=== PATIENT | female | born 1965 | race American Indian/Alaskan Native ===

== ENCOUNTER 2017-08-25 10:48 | Emergency (ER) | payer BC, OTHER ==
[2017-08-25 10:57] VITALS: BP 134/82
[2017-08-25 11:43] LABS: Hemoglobin 14.4 gm/dl (10.1-14.3); Mean Corpuscular HGB Conc 34 % (30-34); Mean Corpuscular Hemoglobin 30 pg (28-32); Mean Corpuscular Volume 88 fl (79-97); Platelet Count 310 K/mm3 (140-440); Red Blood Count 4.89 M/mm3 (3.65-5.03); Red Cell Distribution Width 13.5 % (13.2-15.2)
[2017-08-25 11:53] LABS: INR 0.89 (0.87-1.13); Partial Thromboplastin Time 30.4 Sec. (24.2-36.6)
[2017-08-25 11:58] LABS: BUN/Creatinine Ratio 11; Blood Urea Nitrogen 10 mg/dL (7-17); Calcium 10.1 mg/dL (8.4-10.2); Hemolysis Index 13
[2017-08-25 12:23] LABS: Large Platelets Few; Platelet Estimate Cons; RBC Morphology Normal; Smudge Cells Few; Total Cells Counted 100
--- NOTE | 2017-08-25 12:50 | Cat Scan Report ---
FINAL REPORT PROCEDURE: CT HEAD/BRAIN WO CON TECHNIQUE: Computerized tomography of the head was performed without contrast material. HISTORY: HEREDIA/ blurred vision/dizziness COMPARISON: None FINDINGS: Brain volume is age appropriate. There is no CT evident acute infarction. There is no remote infarct, intra or extra-axial hemorrhage. There is no gross mass lesion or leptomeningeal abnormality given limitation of lack of IV contrast. The skull base and calvarium are intact. The partially visualized paranasal sinuses, mastoid air cells and middle ears are clear. IMPRESSION: Normal Examination
== END 2017-08-25 16:53 | disposition left against medical advice (07) ==
LOC: ED 10:48
DX: R51 Headache (principal); Z53.21 Procedure and treatment not carried out due to patient leaving prior to being seen by health care provider
CPT/HCPCS: 36415; 70450; 80048; 84484; 85007; 85025; 85610; 85670; 85730; 93005; 93010

== ENCOUNTER 2017-10-06 10:00 | Outpatient (CLI) | payer BC ==
--- NOTE | 2017-10-06 11:38 | Mammography Report ---
BILATERAL DIGITAL SCREENING MAMMOGRAM with CAD: 10/06/17 10:00:00 CLINICAL: Routine screening. COMPARISON:09/30/16 FINDINGS: The breasts are heterogeneously dense, which may obscure small masses. No mass, architectural distortion or suspicious calcifications. IMPRESSION: No mammographic evidence of malignancy. BI-RADS CATEGORY: 1 - - Negative RECOMMENDATION: Routine mammographic screening in one year. COMMENT: Patient follow-up letters are generated by our [employer] application.
== END 2017-10-06 10:01 | disposition home or self-care (01) ==
LOC: MAMMO 10:00
PROVIDERS: ATTEND Family Medicine
DX: Z12.31 Encounter for screening mammogram for malignant neoplasm of breast (principal)
CPT/HCPCS: 77067

== ENCOUNTER 2017-12-10 09:11 | Emergency (ER) | payer BC ==
[2017-12-10 10:25] LABS: Alanine Aminotransferase 50 units/L (7-56); Albumin 4.2 g/dL (3.9-5); BUN/Creatinine Ratio 12; Blood Urea Nitrogen 11 mg/dL (7-17); Calcium 9.5 mg/dL (8.4-10.2); Hemolysis Index 5; Lipase 32 units/L (13-60)
[2017-12-10 10:41] LABS: Basophils # (Auto) 0.1 K/mm3 (0.0-0.1); Eosinophils # (Auto) 0.4 K/mm3 (0.0-0.4); Eosinophils % (Auto) 7.8 % (0.0-4.3); Hematocrit 40.8 % (30.3-42.9); Hemoglobin 13.8 gm/dl (10.1-14.3); Lymphocytes # (Auto) 2.4 K/mm3 (1.2-5.4); Lymphocytes % (Auto) 43.1 % (13.4-35.0); Mean Corpuscular HGB Conc 34 % (30-34); Mean Corpuscular Hemoglobin 30 pg (28-32); Mean Corpuscular Volume 88 fl (79-97); Monocytes # (Auto) 0.5 K/mm3 (0.0-0.8); Monocytes % (Auto) 8.6 % (0.0-7.3); Platelet Count 288 K/mm3 (140-440); Red Blood Count 4.63 M/mm3 (3.65-5.03); Red Cell Distribution Width 13.7 % (13.2-15.2)
[2017-12-10 11:01] LABS: Bilirubin,Urine NEG (Negative); Blood,Urine NEG (Negative); Color,Urine Straw (Yellow); Mucus,Urine FEW /HPF; Protein,Urine <15 mg/dL mg/dL (Negative); Urobilinogen,Urine < 2.0 mg/dL (<2.0); WBC,Urine < 1.0 /HPF (0.0-6.0)
--- NOTE | 2017-12-10 19:48 | Emergency Department Report ---
ED Abdominal Pain HPI - General Chief Complaint: Abdominal Pain Stated Complaint: ABDOMINAL PAIN Time Seen by Provider: 12/10/17 19:42 Source: patient Mode of arrival: Ambulatory Limitations: No Limitations - History of Present Illness Initial Comments: pt is a 52 y/o aaf with hx of GERD and Pancreatitis follow by Dr. Kortney VEGAS and Charlie pcp states abdominal pain and bloating x 3 days out of antacids , there is no fever no chills no n/v no cp no sob no back pain, symptoms are exacerbated by spice food and heavy po intake symptoms are usually improved with antacids but out now, pain described as burning heartburn. MD Complaint: abdominal pain Onset/Timin -: days(s) Location: LUQ, epigastric Radiation: none Migration to: no migration Severity: mild Severity scale (0 -10): 2 Quality: burning Consistency: intermittent Improves With: rest, other (antacids ) Worsens With: eating Associated Symptoms: denies: vomiting, diarrhea, fever, constipation, dysuria, hematemesis, hematochezia, melena, hematuria, anorexia - Related Data LMP Date: 12/03/17 Home Medications Medication Instructions Recorded Confirmed Last Taken Nebivolol HCl [Bystolic] 10 mg PO DAILY 11/22/13 11/22/13 11/27/13 08:00 Aspirin [Baby Aspirin] 81 mg PO DAILY 11/25/13 11/25/13 11/25/13 09:00 Butalb/Acetamin/Caff 50-325-40 1 mg PO PRN PRN 11/25/13 11/25/13 Unknown [Fioricet] Iron/Dss/B12-If/Folic AC/Mv-Mn 1 tab PO DAILY 11/25/13 11/25/13 Unknown [Hemax Caplet] Loratadine [Claritin] 10 mg PO DAILY 11/25/13 11/25/13 Unknown Meclizine [Antivert] 25 mg PO TID 11/25/13 11/25/13 Unknown Nitroglycerin [Nitrostat] 1 tab PO PRN PRN 11/25/13 11/25/13 Unknown Omeprazole [PriLOSEC] 40 mg PO DAILY 11/25/13 11/25/13 Unknown Pregabalin [Lyrica] 75 mg PO BID 11/25/13 11/25/13 Unknown traMADol [Ultram 50 MG tab] 50 mg PO Q6H 11/25/13 11/25/13 Unknown Previous Rx's Medication Instructions Recorded Last Taken Type Omeprazole 20 mg PO BID #60 tablet. 12/10/17 Unknown Rx Sucralfate [Carafate] 1 gm PO ACHS #28 tablet 12/10/17 Unknown Rx Allergies Allergy/AdvReac Type Severity Reaction Status Date / Time SUTURES AdvReac Swelling Uncoded 11/22/13 14:31 ED Review of Systems ROS: Stated complaint: ABDOMINAL PAIN Other details as noted in HPI Constitutional: denies: chills, fever Eyes: denies: eye pain, eye discharge, vision change ENT: denies: ear pain, throat pain Respiratory: denies: cough, shortness of breath, wheezing Cardiovascular: denies: chest pain, palpitations Endocrine: no symptoms reported Gastrointestinal: abdominal pain. denies: nausea, vomiting, diarrhea, constipation, hematemesis, melena, hematochezia Genitourinary: denies: urgency, dysuria, discharge Musculoskeletal: denies: back pain, joint swelling, arthralgia Skin: denies: rash, lesions Neurological: denies: headache, weakness, paresthesias Psychiatric: denies: anxiety, depression Hematological/Lymphatic: denies: easy bleeding, easy bruising ED Past Medical Hx - Past Medical History Hx Hypertension: Yes (5 YEARS) Hx Deep Vein Thrombosis: Yes (LEFT DVT POST OP BUNIONECTOMY LEFT) Hx GERD: Yes - Surgical History Additional Surgical History: tubal ligation - Social History Smoking Status: Never Smoker - Medications Home Medications: Home Medications Medication Instructions Recorded Confirmed Last Taken Type Nebivolol HCl [Bystolic] 10 mg PO DAILY 11/22/13 11/22/13 11/27/13 08:00 History Aspirin [Baby Aspirin] 81 mg PO DAILY 11/25/13 11/25/13 11/25/13 09:00 History Butalb/Acetamin/Caff 50-325-40 1 mg PO PRN PRN 11/25/13 11/25/13 Unknown History [Fioricet] Iron/Dss/B12-If/Folic AC/Mv-Mn 1 tab PO DAILY 11/25/13 11/25/13 Unknown History [Hemax Caplet] Loratadine [Claritin] 10 mg PO DAILY 11/25/13 11/25/13 Unknown History Meclizine [Antivert] 25 mg PO TID 11/25/13 11/25/13 Unknown History Nitroglycerin [Nitrostat] 1 tab PO PRN PRN 11/25/13 11/25/13 Unknown History Omeprazole [PriLOSEC] 40 mg PO DAILY 11/25/13 11/25/13 Unknown History Pregabalin [Lyrica] 75 mg PO BID 11/25/13 11/25/13 Unknown History traMADol [Ultram 50 MG tab] 50 mg PO Q6H 11/25/13 11/25/13 Unknown History Omeprazole 20 mg PO BID #60 tablet. 12/10/17 Unknown Rx Sucralfate [Carafate] 1 gm PO ACHS #28 tablet 12/10/17 Unknown Rx ED Physical Exam - General Limitations: No Limitations General appearance: alert, in no apparent distress - Head Head exam: Present: atraumatic, normocephalic - Eye Eye exam: Present: normal appearance - ENT ENT exam: Present: mucous membranes moist - Neck Neck exam: Present: normal inspection - Respiratory Respiratory exam: Present: normal lung sounds bilaterally. Absent: respiratory distress, wheezes, rhonchi, chest wall tenderness - Cardiovascular Cardiovascular Exam: Present: regular rate, normal rhythm, normal heart sounds. Absent: systolic murmur, diastolic murmur, rubs, gallop - GI/Abdominal GI/Abdominal exam: Present: soft, normal bowel sounds. Absent: distended, tenderness, guarding, rebound, rigid, organomegaly, mass, bruit, pulsatile mass , hernia - Rectal Rectal exam: Present: deferred - Extremities Exam Extremities exam: Present: normal inspection - Back Exam Back exam: Present: normal inspection, full ROM. Absent: tenderness, CVA tenderness (R), CVA tenderness (L) - Neurological Exam Neurological exam: Present: alert, oriented X3, normal gait - Psychiatric Psychiatric exam: Present: normal affect, normal mood - Skin Skin exam: Present: warm, dry, intact, normal color. Absent: rash ED Course Vital Signs 12/10/17 12/10/17 12/10/17 09:53 14:22 18:31 Temperature 98.2 F 98.6 F Pulse Rate 91 H 95 H 78 Respiratory 16 20 18 Rate Blood Pressure 134/80 125/77 118/74 O2 Sat by Pulse 100 97 100 Oximetry 12/10/17 18:37 Temperature 98 F Pulse Rate Respiratory Rate Blood Pressure O2 Sat by Pulse Oximetry ED Medical Decision Making - Lab Data Result diagrams: 12/10/17 10:00 12/10/17 10:00 Laboratory Tests 12/10/17 12/10/17 12/10/17 10:00 10:00 10:08 WBC 5.5 RBC 4.63 Hgb 13.8 Hct 40.8 MCV 88 MCH 30 MCHC 34 RDW 13.7 Plt Count 288 Lymph % (Auto) 43.1 H [place] % (Auto) 8.6 H Eos % (Auto) 7.8 H Baso % (Auto) 1.0 Lymph # 2.4 [place] # 0.5 Eos # 0.4 Baso # 0.1 Seg Neutrophils % 39.5 L Seg Neutrophils # 2.2 Sodium 142 Potassium 3.8 Chloride 104.7 Carbon Dioxide 27 Anion Gap 14 BUN 11 Creatinine 0.9 Estimated GFR > 60 BUN/Creatinine Ratio 12 Glucose 119 H Calcium 9.5 Total Bilirubin 0.30 AST 33 ALT 50 Alkaline Phosphatase 96 Total Protein 7.2 Albumin 4.2 Albumin/Globulin Ratio 1.4 Lipase 32 Urine Color Straw Urine Turbidity Clear Urine pH 6.0 Ur Specific Noti 1.008 Urine Protein <15 mg/dl Urine Glucose (UA) Neg Urine Ketones Neg Urine Blood Neg Urine Nitrite Neg Urine Bilirubin Neg Urine Urobilinogen < 2.0 Ur Leukocyte Esterase Neg Urine WBC (Auto) < 1.0 Urine RBC (Auto) 1.0 U Epithel Cells (Auto) 3.0 Urine Mucus Few - Medical Decision Making this is GERD, pt is tolerating po intake without n/v appears well nontoxic well hydrated no fever no chills no n/v plan: omeprazole carafate follow up with Dr. Kortney VEGAS tomorrow. pt verbalized agreement and understanding discharge plan. Critical care attestation.: If time is entered above; I have spent that time in minutes in the direct care of this critically ill patient, excluding procedure time. ED Disposition Clinical Impression: GERD (gastroesophageal reflux disease) Qualifiers: Esophagitis presence: without esophagitis Qualified Code(s): K21.9 - Gastro- esophageal reflux disease without esophagitis Abdominal pain Qualifiers: Abdominal location: epigastric Qualified Code(s): R10.13 - Epigastric pain Disposition: DC- TO HOME OR SELFCARE Is pt being admited?: No Does the pt Need Aspirin: No Condition: Good Instructions: Abdominal Pain (ED), Gastroesophageal Reflux Disease (ED) Prescriptions: Omeprazole 20 mg PO BID #60 tablet. Sucralfate [Carafate] 1 gm PO ACHS #28 tablet Referrals: SHERITA GARCIA MD [Primary Care Provider] - 3-5 Days ALBA SHEN MD [Staff Physician] - 3-5 Days Forms: Work/School Release Form(ED) Time of Disposition: 19:54
[2017-12-10 20:05] VITALS: BP 104/69
== END 2017-12-10 20:03 | disposition home or self-care (01) ==
LOC: ED 09:11
DX: K21.9 Gastro-esophageal reflux disease without esophagitis (principal); R10.13 Epigastric pain; I10 Essential (primary) hypertension
CPT/HCPCS: 36415; 80053; 81001; 83690; 85025; 99283

== ENCOUNTER 2018-10-19 10:06 | Outpatient (CLI) | payer BC ==
--- NOTE | 2018-10-19 12:06 | Mammography Report ---
BILATERAL DIGITAL SCREENING MAMMOGRAM with CAD: 10/19/18 10:06:00 CLINICAL: Routine screening. COMPARISON:10/06/17 FINDINGS: The breasts are heterogeneously dense, which may obscure small masses. No mass, architectural distortion or suspicious calcifications. IMPRESSION: No mammographic evidence of malignancy. BI-RADS CATEGORY: 1 - - Negative RECOMMENDATION: Routine mammographic screening in one year. COMMENT: Patient follow-up letters are generated by our [employer] application.
== END 2018-10-19 10:07 | disposition home or self-care (01) ==
LOC: MAMMO 10:06
PROVIDERS: ATTEND Family Medicine
DX: Z12.31 Encounter for screening mammogram for malignant neoplasm of breast (principal)
CPT/HCPCS: 77067

== ENCOUNTER 2019-10-29 09:53 | Outpatient (CLI) | payer BC ==
--- NOTE | 2019-10-29 14:14 | Mammography Report ---
DIGITAL SCREENING MAMMOGRAM WITH CAD, 10/29/2019 INDICATION: Routine screening mammography. TECHNIQUE: Digital bilateral 2D mammography was obtained in the craniocaudal and mediolateral obliq ue projections. This examination was interpreted with the benefit of Computer-Aided Detection analysi s. COMPARISON: 10/19/2018 FINDINGS: Breast Density: The breasts are heterogeneously dense, which may obscure small masses. An irregular left inner focal asymmetry requires additional imaging. No architectural distortion or s uspicious calcifications of the left breast. There is no evidence of dominant mass, suspicious calcif ications or architectural distortion in the right breast. IMPRESSION: Left focal asymmetry requiring additional imaging. Recommend recall for left lateral medi al and spot magnification MLO and CC views and left breast ultrasound if needed. Follow up recommendation: Special View: Mag Category 0: Incomplete. Needs additional imaging evaluation and/or prior mammograms for comparison. A "normal" or negative report should not discourage follow up or biopsy of a clinically significant f inding. A written summary of these findings will be mailed to the patient. The patient will be entered into a mammography reporting system which will generate a reminder letter for the patient's next appointmen t at the appropriate interval. The [employer] recommends yearly mammograms starting at age 40 and continuing as l ami as a woman is in good health. Breast MRI is recommended for women with an approximate 20-25% or greater lifetime risk of breast cancer, including women with a strong family history of breast or ova johan cancer or who have been treated for Hodgkin's disease. Signer Name: Jayson Rhodes MD Signed: 10/29/2019 2:10 PM Workstation Name: [id number]
== END 2019-10-29 09:54 | disposition home or self-care (01) ==
LOC: MAMMO 09:53
PROVIDERS: ATTEND Family Medicine
DX: Z12.31 Encounter for screening mammogram for malignant neoplasm of breast (principal)
CPT/HCPCS: 77067

== ENCOUNTER 2019-11-29 12:26 | Outpatient (CLI) | payer BC ==
--- NOTE | 2019-12-02 09:00 | Ultrasound Report ---
LEFT DIGITAL DIAGNOSTIC MAMMOGRAM WITH CAD -- 11/29/2019 LEFT LIMITED BREAST ULTRASOUND INDICATION: Patient presents as a callback from screening mammogram for further evaluation of a focal asymmetric density in the left breast. TECHNIQUE: Digital left mammographic imaging was performed. Spot compression views were obtained. Li mited ultrasound was performed. This examination was interpreted with the benefit of Computer-Aided D etection (CAD) analysis. COMPARISON: Prior mammograms 10/29/2019, 10/19/2018, and 10/06/2017 FINDINGS: Breast Density: The breasts are heterogeneously dense, which may obscure small masses. MAMMOGRAPHIC FINDINGS: The previously described focal asymmetric density in the 9:00 position of the left breast, anterior depth, is much less conspicuous on additional views, suggesting overlapping fib roglandular tissue. Targeted ultrasound performed for confirmation. ULTRASOUND FINDINGS: Targeted ultrasound evaluation was performed of the area of interest. Targeted ultrasound of the 6:00 through 9:00 position of the left breast reveals normal fibroglandular tissue . No suspicious cystic or solid lesion identified, confirming that the previously described focal asy mmetric density represents overlapping tissue. IMPRESSION: 1. The previously described focal asymmetric density is much less conspicuous on additional views and without sonographic correlate, compatible with overlapping fibroglandular tissue. Follow up recommen dation: Routine yearly BI-RADS Category 1: Negative. A "normal" or negative report should not discourage follow up or biopsy of a clinically significant f inding. A written summary of these findings will be mailed to the patient. The patient will be entered into a mammography reporting system which will generate a reminder letter for the patient's next appointmen t at the appropriate interval. According to the [employer], yearly mammograms are recommended starting at age 40 and continuing as long as a woman is in good health. Breast MRI is recommended for women with an karen roximately 20-25% or greater lifetime risk of breast cancer, including women with a strong family his tory of breast or ovarian cancer and women who have been treated for Hodgkin's disease. Signer Name: Mandi Mathews MD Signed: 12/02/2019 8:55 AM Workstation Name: [id number]
== END 2019-11-29 12:27 | disposition home or self-care (01) ==
LOC: MAMMO 12:26
PROVIDERS: ATTEND Family Medicine
DX: R92.8 Other abnormal and inconclusive findings on diagnostic imaging of breast (principal)

== ENCOUNTER 2020-10-30 12:53 | Outpatient (CLI) | payer BC ==
--- NOTE | 2020-10-30 14:26 | Mammography Report ---
DIGITAL SCREENING MAMMOGRAM WITH CAD, 10/30/2020 CLINICAL INFORMATION / INDICATION: Routine screening mammography. TECHNIQUE: Digital bilateral 2D mammography was obtained in the craniocaudal and mediolateral obliqu e projections. This examination was interpreted with the benefit of Computer-Aided Detection analysis . COMPARISON: 10/06/2017 FINDINGS: Breast Density: The breasts are heterogeneously dense, which may obscure small masses. No dominant mass, suspicious calcifications, or architectural distortion in either breast. No interval change. IMPRESSION: No mammographic evidence of malignancy. Follow up recommendation: Routine yearly BI-RADS Category 1: Negative. A "normal" or negative report should not discourage follow up or biopsy of a clinically significant f inding. A written summary of these findings will be mailed to the patient. The patient will be entered into a mammography reporting system which will generate a reminder letter for the patient's next appointmen t at the appropriate interval. The [employer] recommends yearly mammograms starting at age 40 and continuing as l ami as a woman is in good health. Breast MRI is recommended for women with an approximate 20-25% or greater lifetime risk of breast cancer, including women with a strong family history of breast or ova johan cancer or who have been treated for Hodgkin's disease. Signer Name: Kate Thapa MD Signed: 10/30/2020 2:22 PM Workstation Name: [id number]
== END 2020-10-30 12:54 | disposition home or self-care (01) ==
LOC: MAMMO 12:53
PROVIDERS: ATTEND Family Medicine
DX: Z12.31 Encounter for screening mammogram for malignant neoplasm of breast (principal)
CPT/HCPCS: 77067

== ENCOUNTER 2021-11-04 12:29 | Outpatient (CLI) | payer BC ==
--- NOTE | 2021-11-04 15:56 | Mammography Report ---
DIGITAL SCREENING MAMMOGRAM WITH CAD, 11/04/2021 CLINICAL INFORMATION / INDICATION: Routine screening mammography. SCREENING MAMMOGRAM TECHNIQUE: Digital bilateral 2D mammography was obtained in the craniocaudal and mediolateral obliqu e projections. This examination was interpreted with the benefit of Computer-Aided Detection analysis . COMPARISON: 10/30/2020 and 10/29/2019 FINDINGS: Breast Density: The breasts are heterogeneously dense, which may obscure small masses. No dominant mass, suspicious calcifications, or architectural distortion in either breast. IMPRESSION: No mammographic evidence of malignancy. Follow up recommendation: Routine yearly BI-RADS Category 1: NEGATIVE A "normal" or negative report should not discourage follow up or biopsy of a clinically significant f inding. A written summary of these findings will be mailed to the patient. The patient will be entered into a mammography reporting system which will generate a reminder letter for the patient's next appointmen t at the appropriate interval. The [employer] recommends yearly mammograms starting at age 40 and continuing as l ami as a woman is in good health. Breast MRI is recommended for women with an approximate 20-25% or greater lifetime risk of breast cancer, including women with a strong family history of breast or ova johan cancer or who have been treated for Hodgkin's disease. Signer Name: Juwan Purdy MD Signed: 11/04/2021 3:51 PM Workstation Name: [id number]
== END 2021-11-04 12:30 | disposition home or self-care (01) ==
LOC: MAMMO 12:29
PROVIDERS: ATTEND Family Medicine
DX: Z12.31 Encounter for screening mammogram for malignant neoplasm of breast (principal); N64.89 Other specified disorders of breast
CPT/HCPCS: 77067